=== PATIENT | female | born 1955 | race Two or more races ===

== ENCOUNTER 2017-06-10 12:50 | Emergency (ER) | payer MEDICARE, MEDICAID ==
[~2017-06-10] VITALS: Ht 170.2 cm; Wt 95.3 kg
--- NOTE | 2017-06-10 12:55 | NUR ---
PRESENTS TO ER C/O BACK PAIN; STARTS AT HER TAIL BONE, RADIATES TO THE LEFT LOWER EXTREMITY. STATING SHE FELL FEW DAYS AGO. A/OX 4. BREATHING EVEN AND UNLABORED. NO SOB. NO TRAUMA NOTED, VITALS STABLE. SAFETY AND COMFORT MEASURES IN PLACE. AWAITING MD ORDERS.
[2017-06-10] MEDS ORDERED: LEVO50TA8 PO (12:56)
[2017-06-10] MEDS ORDERED: HYDR12.5 PO (12:56)
[2017-06-10] MEDS ORDERED: IBUPROFEN 600 MG TABLET PO ONE (13:06)
[2017-06-10] MEDS ORDERED: ATOR40TA GT (13:08)
[2017-06-10] MEDS ORDERED: LOSA1TAB42 PO (13:08)
[2017-06-10] MEDS: IBUPROFEN 600 MG TABLET PO ONE (13:18)
[2017-06-10 13:37] LABS: BASOPHILS % (AUTO) 0.8 % (0.0-2.0); EOSINOPHILS # (AUTO) 0.1 /CMM (0.0-0.7); EOSINOPHILS % (AUTO) 2.9 % (0.0-6.0); HEMATOCRIT 31 % (33-45); HEMOGLOBIN 10.4 g/dL (11.5-14.8); MEAN CORPUSCULAR HEMOGLOBIN 30 PG (26.0-33.0); MEAN CORPUSCULAR HGB CONC 33 g/dl (31.0-36.0); MEAN CORPUSCULAR VOLUME 89 fL (82-100); MONOCYTES # (AUTO) 0.5 /CMM (0.1-1.30); MONOCYTES % (AUTO) 9.1 % (2.0-12.0); NEUTROPHILS # (AUTO) 2.6 /CMM (1.8-8.9); NEUTROPHILS % (AUTO) 48.2 % (43.0-81.0); PLATELET COUNT (AUTO) 249 /CMM (150-450); RDW COEFFICIENT OF VARIATION 13.4 (11.5-15.0); RED BLOOD CELL COUNT(AUTO) 3.51 MIL/uL (4.0-5.2); WHITE BLOOD COUNT (AUTO) 5.2 K/uL (4.3-11.0)
--- NOTE | 2017-06-10 13:37 | NUR ---
PATIENT TAKEN TO RADIOLOGY VIA STRETCHER.
[2017-06-10 13:47] LABS: CARBON DIOXIDE 28 mmol/L (21-32); CHLORIDE 106 mmol/L (98-107); CREATININE 0.6 mg/dL (0.6-1.3); GLUCOSE 97 mg/dL (74-106); POTASSIUM 3.8 mmol/L (3.5-5.1); SODIUM SERUM 140 mmol/L (136-145); UREA NITROGEN, BLOOD 11 mg/dL (7-18)
[2017-06-10 13:50] LABS: INR 1.01 (0.87-1.13); PROTHROMBIN TIME 10.5 SECS (9.5-12.7)
--- NOTE | 2017-06-10 13:52 | NUR ---
PATIENT RETURNED FROM RADIOLOGY IN STABLE CONDITION.
[2017-06-10 13:57] LABS: TROPONIN I < 0.017 ng/mL (0.00-0.056)
--- NOTE | 2017-06-10 14:47 | NUR ---
EKG IN PROCESS
[2017-06-10 15:10] VITALS: BP 155/94
--- NOTE | 2017-06-10 15:11 | NUR ---
Patient discharged to home in stable condition. Written and verbal after care instructions given. Patient verbalizes understanding of instruction.
== END 2017-06-10 15:11 | disposition home or self-care (01) ==
LOC: ER 12:52
DX: S39.012A Strain of muscle, fascia and tendon of lower back, initial encounter (principal); R55 Syncope and collapse; I10 Essential (primary) hypertension; E03.9 Hypothyroidism, unspecified; W10.9XXA Fall (on) (from) unspecified stairs and steps, initial encounter; Y93.01 Activity, walking, marching and hiking; Y92.89 Other specified places as the place of occurrence of the external cause; Y99.8 Other external cause status
CPT/HCPCS: 36415; 70450; 72100; 80048; 84484; 85025; 85730; 93005; 99285; A4606; Z7610